=== PATIENT | female | born 1970 | race Caucasian/White ===

== ENCOUNTER → 2023-03-18 12:44 | Outpatient (REF) | payer BC, SELFPAY | LOC: HWWDC 12:44 | PROVIDERS: ATTENDING PHYSICIAN Obstetrics & Gynecology; FAMILY PHYSICIAN Internal Medicine | DX: Z12.31 Encounter for screening mammogram for malignant neoplasm of breast (principal) | CPT/HCPCS: 77063; 77067 ==

== ENCOUNTER → 2024-06-08 13:22 | Outpatient (REF) | payer BC, SELFPAY | LOC: HWWDC 13:22 | PROVIDERS: ATTENDING PHYSICIAN Obstetrics & Gynecology; FAMILY PHYSICIAN Family Medicine | DX: Z12.31 Encounter for screening mammogram for malignant neoplasm of breast (principal) | CPT/HCPCS: 77063; 77067 ==

== ENCOUNTER 2024-06-19 06:19 | Day surgery (SDC) | payer BC, SELFPAY | END 2024-06-19 16:07 | disposition home or self-care (01) | LOC: GI 06:19 | PROVIDERS: ATTENDING PHYSICIAN Internal Medicine Gastroenterology | DX: Z12.11 Encounter for screening for malignant neoplasm of colon (principal); K64.8 Other hemorrhoids; K57.30 Diverticulosis of large intestine without perforation or abscess without bleeding | CPT/HCPCS: G0121 ==

== ENCOUNTER → 2024-11-14 13:23 | Outpatient (REF) | payer BC, SELFPAY | LOC: HWRAD 13:23 | PROVIDERS: ATTENDING PHYSICIAN Student in an Organized Health Care Education/Training Program; FAMILY PHYSICIAN Family Medicine | DX: N95.0 Postmenopausal bleeding (principal) | CPT/HCPCS: 76830; 76856 ==